=== PATIENT | male | born 1960 | race Caucasian/White ===

== ENCOUNTER 2016-12-18 22:24 | Emergency (ER) | payer OTHER ==
--- NOTE | 2016-12-18 23:01 | ED NURSING NOTES ---
Clinical Report - Nurses [facility] [address] [place] [address] 12/18/2016 22:27 Patient: ZAINA FLORES TRIAGE Triage time 22:34 Dec 18 2016. Chief Complaint: REDNESS and PAIN TO RIGHT EYE. DISCOMFORT, BURNING and DRAINAGE TO RIGHT EYE. 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 Alert. No acute distress. SEPSIS SCREEN: Sepsis Screen. Negative (no infection suspected/documented). --22:43 Sarahy Rojas R.N. 22:34 12/18/16. BP: 131/82. HR: 82. RR: 19. O2 saturation: 100%. Temp: 97.8 F. Pain level now: 05/24. --22:43 Sarahy Rojas R.N. Weight: 120.2 kg stated. Height/Length: 72 inches Per Patient. BMI: 36. --22:41 Sarahy Rojas R.N. Medications None. --22:39 Sarahy Rojas R.N. Allergies None. --22:39 Sarahy Rojas R.N. History Arrived by private vehicle. Historian: patient. This is a new problem and onset was gradual. (6 hours ago). He may have sustained an injury. He has had eye discomfort and eye irritation. He has had eye discharge (teary). 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 PAST MEDICAL HX: Immunizations: up-to-date. SURGERY HX: No history of previous surgery. SOCIAL HX: Never smoker. Alcohol use; consumes beer occasionally. No drug use. No infectious disease exposure. ABUSE ASSESSMENT: No report of abuse. SELF HARM ASSESSMENT: A self harm assessment was performed. The patient answered "no" to the question "Have you recently felt down, depressed, or hopeless?", "Have you noticed less interest or pleasure in doing things?", "Do you have thoughts of harming or killing yourself?", "Are you here because you tried to hurt yourself?", "Have you ever tried to hurt yourself before today?", "Have you recently had thoughts about harming or killing others?" and "Do you have any dangerous items in your possession?". FALL RISK ASSESSMENT: Fall risk assessment completed. No fall risk identified. NUTRITIONAL RISK ASSESSMENT: The nutritional risk assessment revealed no deficiencies. FUNCTIONAL ASSESSMENT: Functional assessment: no impairments noted. LEARNING NEEDS ASSESSMENT: The learning needs assessment revealed no barriers. SKIN INTEGRITY ASSESSMENT: Skin integrity risk assessment completed. No skin integrity risk identified. --22:43 Sarahy Rojas R.N. PROBLEMS: "mild hypertension". --22:40 Sarahy Rojas R.N. ADDITIONAL SURGERIES: no known surgeries. Interventions ID band on patient. To treatment room. --22:43 Sarahy Rojas R.N. PHYSICAL ASSESSMENT Ambulatory to room. Patient gowned. GENERAL / NEURO / PSYCH: Alert. Appears in pain. HEENT: No facial asymmetry noted. Pupils equal, round and reactive to light. Runny nose. RESPIRATORY: Respirations not labored. CVS: Capillary refill less than 2 seconds. SKIN: Skin is warm and dry. Normal skin turgor. --22:44 Sarahy Rojas R.N. NURSING PROGRESS NOTES Head of bed elevated. Reassurance given. Patient identifiers checked. Call light placed in reach. Side rails up x 1. Bed placed in lowest position. Brakes of bed on. Patient ready for evaluation- chart flagged. --22:45 Sarahy Rojas R.N. FB REMOVAL - EYE: Removal of foreign body to the eye performed by ED physician. Preparation: slit lamp, fluorescein and gooden lamp at bedside. Procedure: foreign body was removed from the right eye. Procedure was performed successfully. ( provided proparacaine, 2 drops instilled in right eye prior to procedure, following procedure right eye irrigated with 300 ml NS per ,). --23:15 Sarahy Rojas R.N. DISPOSITION / DISCHARGE Departure time: 2317. No learning barriers present. Discharge instructions provided and reviewed with the patient. Reviewed medication(s) side effects and course information. Prescription(s) given to the patient. Work note given ( wrote for 2 days off of work). Patient verbalized understanding. Written instructions provided in Hebrew. The patient was discharged by the physician. He was discharged home. He left the Emergency Department ambulatory and via private vehicle. Patient driving. 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 --23:17 Sarahy Rojas R.N. 23:15 12/18/16. BP: 124/74. HR: 72. RR: 17. O2 saturation: 99%. Temp: 98 F. Pain level now: 0/10. --23:17 Sarahy Rojas R.N. Locked/Released at 12/19/2016 19:02 by Sarahy Rojas R.N.
--- NOTE | 2016-12-18 23:01 | ED NURSING NOTES ---
Clinical Report - Nurses [facility] [address] [place] [address] 12/18/2016 22:27 Patient: ZAINA FLORES TRIAGE Triage time 22:34 Dec 18 2016. Chief Complaint: REDNESS and PAIN TO RIGHT EYE. DISCOMFORT, BURNING and DRAINAGE TO RIGHT EYE. 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 Alert. No acute distress. SEPSIS SCREEN: Sepsis Screen. Negative (no infection suspected/documented). --22:43 Sarahy Rojas R.N. 22:34 12/18/16. BP: 131/82. HR: 82. RR: 19. O2 saturation: 100%. Temp: 97.8 F. Pain level now: 05/24. --22:43 Sarahy Rojas R.N. Weight: 120.2 kg stated. Height/Length: 72 inches Per Patient. BMI: 36. --22:41 Sarahy Rojas R.N. Medications None. --22:39 Sarahy Rojas R.N. Allergies None. --22:39 Sarahy Rojas R.N. History Arrived by private vehicle. Historian: patient. This is a new problem and onset was gradual. (6 hours ago). He may have sustained an injury. He has had eye discomfort and eye irritation. He has had eye discharge (teary). 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 PAST MEDICAL HX: Immunizations: up-to-date. SURGERY HX: No history of previous surgery. SOCIAL HX: Never smoker. Alcohol use; consumes beer occasionally. No drug use. No infectious disease exposure. ABUSE ASSESSMENT: No report of abuse. SELF HARM ASSESSMENT: A self harm assessment was performed. The patient answered "no" to the question "Have you recently felt down, depressed, or hopeless?", "Have you noticed less interest or pleasure in doing things?", "Do you have thoughts of harming or killing yourself?", "Are you here because you tried to hurt yourself?", "Have you ever tried to hurt yourself before today?", "Have you recently had thoughts about harming or killing others?" and "Do you have any dangerous items in your possession?". FALL RISK ASSESSMENT: Fall risk assessment completed. No fall risk identified. NUTRITIONAL RISK ASSESSMENT: The nutritional risk assessment revealed no deficiencies. FUNCTIONAL ASSESSMENT: Functional assessment: no impairments noted. LEARNING NEEDS ASSESSMENT: The learning needs assessment revealed no barriers. SKIN INTEGRITY ASSESSMENT: Skin integrity risk assessment completed. No skin integrity risk identified. --22:43 Sarahy Rojas R.N. PROBLEMS: "mild hypertension". --22:40 Sarahy Rojas R.N. ADDITIONAL SURGERIES: no known surgeries. Interventions ID band on patient. To treatment room. --22:43 Sarahy Rojas R.N. PHYSICAL ASSESSMENT Ambulatory to room. Patient gowned. GENERAL / NEURO / PSYCH: Alert. Appears in pain. HEENT: No facial asymmetry noted. Pupils equal, round and reactive to light. Runny nose. RESPIRATORY: Respirations not labored. CVS: Capillary refill less than 2 seconds. SKIN: Skin is warm and dry. Normal skin turgor. --22:44 Sarahy Rojas R.N. NURSING PROGRESS NOTES Head of bed elevated. Reassurance given. Patient identifiers checked. Call light placed in reach. Side rails up x 1. Bed placed in lowest position. Brakes of bed on. Patient ready for evaluation- chart flagged. --22:45 Sarahy Rojas R.N. FB REMOVAL - EYE: Removal of foreign body to the eye performed by ED physician. Preparation: slit lamp, fluorescein and gooden lamp at bedside. Procedure: foreign body was removed from the right eye. Procedure was performed successfully. ( provided proparacaine, 2 drops instilled in right eye prior to procedure, following procedure right eye irrigated with 300 ml NS per ,). --23:15 Sarahy Rojas R.N. DISPOSITION / DISCHARGE Departure time: 2317. No learning barriers present. Discharge instructions provided and reviewed with the patient. Reviewed medication(s) side effects and course information. Prescription(s) given to the patient. Work note given ( wrote for 2 days off of work). Patient verbalized understanding. Written instructions provided in Setswana. The patient was discharged by the physician. He was discharged home. He left the Emergency Department ambulatory and via private vehicle. Patient driving. 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 --23:17 Sarahy Rojas R.N. 23:15 12/18/16. BP: 124/74. HR: 72. RR: 17. O2 saturation: 99%. Temp: 98 F. Pain level now: 0/10. --23:17 Sarahy Rojas R.N. Locked/Released at 12/19/2016 19:02 by Sarahy Rojas R.N.
--- NOTE | 2016-12-18 23:01 | ED CLINICAL REPORT ---
Clinical Report - Physicians/Mid Levels [facility] [address] [place] [address] 12/18/2016 22:27 Patient: ZAINA FLORES Time Seen: 22:36. Arrived- By private vehicle. Historian- patient. HISTORY OF PRESENT ILLNESS Chief Complaint: EYE PAIN, REDNESS and FOREIGN BODY. This started about 8 hours ago, involves the right eye, is characterized as moderate in severity and has been constant and is still present. The patient sustained injury. 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 He has metallic foreign material in the right eye that fell from overhead and from grinding (he was wearing safety goggles and feels something may have fallen into his eye from above - but no definite high velocity injury mechanism). Eye pain and irritation. Moderate right eye redness. A moderate amount of watery discharge from the right eye. No eye itching, eyelid swelling, photophobia or decreased vision. Patient denies injury to the head, face or neck. REVIEW OF SYSTEMS No fever, sore throat or cough. PAST HISTORY See nurses notes. No history of diabetes mellitus or glaucoma. Tetanus immunization status is up-to-date. Mild hypertension. Surgeries: No history of previous surgery. Additional Surgeries: no known surgeries. Medications: None. Allergies: None. SOCIAL HISTORY Never smoker. Occasional alcohol use. No drug use. ADDITIONAL NOTES The nursing notes have been reviewed. PHYSICAL EXAM Vital Signs: 12/18/2016 22:34 BP: 131/82. HR: 82. RR: 19. O2 saturation: 100%. Temp: 97.8 F. Pain level now: 10/10. Appearance: Alert. Oriented X3. Patient in moderate distress. HEENT: Nose normal. Head appears normal to external inspection. Eyes: Right eyelid everted for examination. Right cornea examined with fluorescein stain. Eyelids appear normal to inspection. Pupils equal, round and reactive to light. Accommodation normal. EOMs intact. Periorbital areas appear normal to inspection. Right eye examined with slit lamp. Anterior chambers clear. Negative Sidel's sign. Rt Eye: Injected conjunctiva. A single small metallic corneal foreign body is present inferiorly. Lt Eye: Left eye exam normal. Neck: Neck supple. Normal inspection. CVS: Normal heart rate and rhythm. Heart sounds normal. Respiratory: No respiratory distress. Breath sounds normal. Skin: No rash. Extremities: Extremities negative. Neuro: Oriented X 3. Mood/affect normal. No motor deficit. PROGRESS AND PROCEDURES Removal of Eye Foreign Body: After topical anesthesia with 3 drops of Proparacaine, a single foreign body was successfully removed from the right cornea using the slit lamp (with magnification) and magnification lenses, a sterile rotating jaime and irrigation, lid eversion, fluorescein and a Wood's lamp. There were no complications encountered. Aftercare included antibiotic ointment. The patient was cooperative. A single rust ring removed. Course of Care: Proparacaine 2 drops to the right eye given. Clear metallic fb with small rust ring - removed as above. Not c/w high velocity injury / globe penetration. Patient/family counseled. Disposition: Discharged. Condition: stable and improved. CLINICAL IMPRESSION Removed corneal foreign body right eye with rust ring. INSTRUCTIONS Do not work for two days. Drink plenty of fluids. No alcohol until released. Warnings: Further evaluation is necessary. It is very important to follow up with a physician. SEDATIVE MEDICATION: You were given sedative medication during your visit. Do not drive or operate dangerous machinery. CONTROLLED SUBSTANCE WARNINGS. GENERAL WARNINGS: Return or contact your physician immediately if your condition worsens or changes unexpectedly, if not improving as expected, or if other problems arise. Prescription Medications: Hydrocodone/APAP 5mg / 325mg: take 1-2 orally every 6 hours as needed for pain. Dispense ten (10). No refill. Sulfacetamide ophthalmic solution 10% : instill 2 drops into the affected eye every 2 hours while awake for 3 days, until symptoms resolve. Dispense ten (10) mL. No refill. OTC Medications: Acetaminophen (available over the counter): take according to label instructions. Motrin (available over the counter): take according to label instructions. Follow-up with: Krish Anthony MD, Ophthalmology, , [facility], [address] [place] [address]; Brandee Saenz MD, Ophthalmology, [facility], [address] [place] [address] Drive - [address], , [place] [phone] Follow up in two days. (Electronically signed by Mark Chavez DO 12/19/2016 7:35)
--- NOTE | 2016-12-18 23:01 | ED CLINICAL REPORT ---
Clinical Report - Physicians/Mid Levels [facility] [address] [place] [address] 12/18/2016 22:27 Patient: ZAINA FLORES Time Seen: 22:36. Arrived- By private vehicle. Historian- patient. HISTORY OF PRESENT ILLNESS Chief Complaint: EYE PAIN, REDNESS and FOREIGN BODY. This started about 8 hours ago, involves the right eye, is characterized as moderate in severity and has been constant and is still present. The patient sustained injury. 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 He has metallic foreign material in the right eye that fell from overhead and from grinding (he was wearing safety goggles and feels something may have fallen into his eye from above - but no definite high velocity injury mechanism). Eye pain and irritation. Moderate right eye redness. A moderate amount of watery discharge from the right eye. No eye itching, eyelid swelling, photophobia or decreased vision. Patient denies injury to the head, face or neck. REVIEW OF SYSTEMS No fever, sore throat or cough. PAST HISTORY See nurses notes. No history of diabetes mellitus or glaucoma. Tetanus immunization status is up-to-date. Mild hypertension. Surgeries: No history of previous surgery. Additional Surgeries: no known surgeries. Medications: None. Allergies: None. SOCIAL HISTORY Never smoker. Occasional alcohol use. No drug use. ADDITIONAL NOTES The nursing notes have been reviewed. PHYSICAL EXAM Vital Signs: 12/18/2016 22:34 BP: 131/82. HR: 82. RR: 19. O2 saturation: 100%. Temp: 97.8 F. Pain level now: 10/10. Appearance: Alert. Oriented X3. Patient in moderate distress. HEENT: Nose normal. Head appears normal to external inspection. Eyes: Right eyelid everted for examination. Right cornea examined with fluorescein stain. Eyelids appear normal to inspection. Pupils equal, round and reactive to light. Accommodation normal. EOMs intact. Periorbital areas appear normal to inspection. Right eye examined with slit lamp. Anterior chambers clear. Negative Sidel's sign. Rt Eye: Injected conjunctiva. A single small metallic corneal foreign body is present inferiorly. Lt Eye: Left eye exam normal. Neck: Neck supple. Normal inspection. CVS: Normal heart rate and rhythm. Heart sounds normal. Respiratory: No respiratory distress. Breath sounds normal. Skin: No rash. Extremities: Extremities negative. Neuro: Oriented X 3. Mood/affect normal. No motor deficit. PROGRESS AND PROCEDURES Removal of Eye Foreign Body: After topical anesthesia with 3 drops of Proparacaine, a single foreign body was successfully removed from the right cornea using the slit lamp (with magnification) and magnification lenses, a sterile rotating jaime and irrigation, lid eversion, fluorescein and a Wood's lamp. There were no complications encountered. Aftercare included antibiotic ointment. The patient was cooperative. A single rust ring removed. Course of Care: Proparacaine 2 drops to the right eye given. Clear metallic fb with small rust ring - removed as above. Not c/w high velocity injury / globe penetration. Patient/family counseled. Disposition: Discharged. Condition: stable and improved. CLINICAL IMPRESSION Removed corneal foreign body right eye with rust ring. INSTRUCTIONS Do not work for two days. Drink plenty of fluids. No alcohol until released. Warnings: Further evaluation is necessary. It is very important to follow up with a physician. SEDATIVE MEDICATION: You were given sedative medication during your visit. Do not drive or operate dangerous machinery. CONTROLLED SUBSTANCE WARNINGS. GENERAL WARNINGS: Return or contact your physician immediately if your condition worsens or changes unexpectedly, if not improving as expected, or if other problems arise. Prescription Medications: Hydrocodone/APAP 5mg / 325mg: take 1-2 orally every 6 hours as needed for pain. Dispense ten (10). No refill. Sulfacetamide ophthalmic solution 10% : instill 2 drops into the affected eye every 2 hours while awake for 3 days, until symptoms resolve. Dispense ten (10) mL. No refill. OTC Medications: Acetaminophen (available over the counter): take according to label instructions. Motrin (available over the counter): take according to label instructions. Follow-up with: Krish Anthony MD, Ophthalmology, , [facility], [address] [place] [address]; Brandee Saenz MD, Ophthalmology, [facility], [address] [place] [address] Drive - [address], , [place] [phone] Follow up in two days. (Electronically signed by Mark Chavez DO 12/19/2016 7:35)
--- NOTE | 2016-12-19 19:02 | ED MED RECONCILIATION SUMMARY ---
Patient: ZAINA FLORES Medication Reconciliation Report [facility] VisitID: [id number] [address] [place] [address] 56y, M Registration Date/Time: 12/18/2016 Weight: 120.2 kg Height/Length: 72 in. BMI: 36.0 ALLERGIES: None The patient's Home Medications are listed below: NONE. The source(s) of the original Home Medication information: Not obtained. The following Medications were given to the patient in the Emergency Department: None. The following Medications were prescribed to the patient: Acetaminophen (available over the counter): take according to label instructions. -- Mark Chavez DO Motrin (available over the counter): take according to label instructions. -- Mark Chavez DO Hydrocodone/APAP 5mg / 325mg: take 1-2 orally every 6 hours as needed for pain. Dispense ten (10). No refill. -- Mark Chavez DO Sulfacetamide ophthalmic solution 10% : instill 2 drops into the affected eye every 2 hours while awake for 3 days, until symptoms resolve. Dispense ten (10) mL. No refill. -- Mark Chavez DO
--- NOTE | 2016-12-19 19:02 | ED DISCHARGE INSTRUCTIONS ---
Patient: ZAINA FLORES General Instructions [facility] VisitID: [id number] Karen More[place]Stephanie [place] [id number] 56y, M Registration Date/Time: 12/18/2016 Removed corneal foreign body right eye with rust ring. INSTRUCTIONS Do not work for two days. Drink plenty of fluids. No alcohol until released. Warnings: Further evaluation is necessary. It is very important to follow up with a physician. SEDATIVE MEDICATION: You were given sedative medication during your visit. Do not drive or operate dangerous machinery. CONTROLLED SUBSTANCE WARNINGS. GENERAL WARNINGS: Return or contact your physician immediately if your condition worsens or changes unexpectedly, if not improving as expected, or if other problems arise. Prescription Medications: Hydrocodone/APAP 5mg / 325mg: take 1-2 orally every 6 hours as needed for pain. Dispense ten (10). No refill. Sulfacetamide ophthalmic solution 10% : instill 2 drops into the affected eye every 2 hours while awake for 3 days, until symptoms resolve. Dispense ten (10) mL. No refill. OTC Medications: Acetaminophen (available over the counter): take according to label instructions. Motrin (available over the counter): take according to label instructions. Follow-up with: Krish Anthony MD, Ophthalmology, , [facility], [address] [place] [address]; Brandee Saenz MD, Ophthalmology, [facility], [address] [place] [address] - [address] [address] Follow up in two days. ADDITIONAL INFORMATION Particle Removed From Eyewith Rust Ring [Corneal F.B.] The metal particle that got into your eye stuck to the cornea (the clear part in front of your eye). This sensitive area is very painful when injured. However, it heals rapidly and the pain disappears within 24-48 hours. Although the metal particle may have been removed, the salty tears have caused the metal to rust and form a stain in the cornea. Many times it is not possible to completely remove a rust ring on the first visit. Therefore, you may have to return to this facility or be referred to an consumer relations specialist for further treatment. Home Care: A cold pack (ice in a plastic bag, wrapped in a towel) may be applied over the eye for 20 minutes at a time to reduce pain. You may use acetaminophen (Tylenol) or ibuprofen (Motrin, Advil) to control pain, unless another medicine was prescribed. [NOTE: If you have chronic liver or kidney disease or ever had a stomach ulcer or GI bleeding, talk with your doctor before using these medicines.] If an EYE PATCH was applied: You may place the ice pack directly over the eye-patch. If you were given a return appointment for patch removal and re-exam, do not miss it. An eye patch should not be left in place for more than 48 hours, unless advised to do so by your doctor. DO NOT DRIVE a motor vehicle or operate machinery with the patch in place since you will have difficulty in judging distances with only one eye. If eye drops or ointment was prescribed, take as directed. Follow Up: If no patch was used but the pain continues for more than 48 hours, you should have another exam. Return to this facility or contact the referral doctor to arrange this. If your eye was patched and if you were asked to remove the patch yourself, see your doctor or return to this facility if your pain is still present after removal. If you were given a return appointment for patch removal and re-exam, do not miss this. It could be harmful if the patch remains in place longer than advised. Get Prompt Medical Attention if any of the following occur: Increasing eye pain or pain that does not improve after 24 hours Discharge from the eye Redness of the eye or swelling of the eyelids Worsening vision Hydrocodone Bitartrate, Acetaminophen Oral tablet What is this medicine? ACETAMINOPHEN; HYDROCODONE (a set a ARELIS hank fen; venkatesh droe KOE done) is a pain reliever. It is used to treat mild to moderate pain. How should I use this medicine? Take this medicine by mouth. Swallow it with a full glass of water. Follow the directions on the prescription label. If the medicine upsets your stomach, take the medicine with food or milk. Do not take more than you are told to take. Talk to your buffer copper regarding the use of this medicine in children. This medicine is not approved for use in children. What side effects may I notice from receiving this medicine? Side effects that you should report to your doctor or health home care manager rn as soon as possible: allergic reactions like skin rash, itching or hives, swelling of the face, lips, or tongue breathing problems confusion feeling faint or lightheaded, falls stomach pain yellowing of the eyes or skin Side effects that usually do not require medical attention (report to your doctor or health home care manager rn if they continue or are bothersome): nausea, vomiting stomach upset What may interact with this medicine? alcohol antihistamines isoniazid medicines for depression, anxiety, or psychotic disturbances medicines for sleep muscle relaxants naltrexone narcotic medicines (opiates) for pain phenobarbital ritonavir tramadol What if I miss a dose? If you miss a dose, take it as soon as you can. If it is almost time for your next dose, take only that dose. Do not take double or extra doses. Where should I keep my medicine? Keep out of the reach of children. This medicine can be abused. Keep your medicine in a safe place to protect it from theft. Do not share this medicine with anyone. Selling or giving away this medicine is dangerous and against the law. Store at room temperature between 15 and 30 degrees C (59 and 86 degrees F). Protect from light. Keep container tightly closed. Throw away any unused medicine after the expiration date. Discard unused medicine and used packaging carefully. Pets and children can be harmed if they find used or lost packages. What should I tell my health care provider before I take this medicine? They need to know if you have any of these conditions: brain tumor Crohn's disease, inflammatory bowel disease, or ulcerative colitis drink more than 3 alcohol-containing drinks per day drug abuse or addiction head injury heart or circulation problems kidney disease or problems going to the bathroom liver disease lung disease, asthma, or breathing problems an unusual or allergic reaction to acetaminophen, hydrocodone, other opioid analgesics, other medicines, foods, dyes, or preservatives or trying to get breast-feeding What should I watch for while using this medicine? Tell your doctor or health home care manager rn if your pain does not go away, if it gets worse, or if you have new or a different type of pain. You may develop tolerance to the medicine. Tolerance means that you will need a higher dose of the medicine for pain relief. Tolerance is normal and is expected if you take the medicine for a long time. Do not suddenly stop taking your medicine because you may develop a severe reaction. Your body becomes used to the medicine. This does NOT mean you are addicted. Addiction is a behavior related to getting and using a drug for a non-medical reason. If you have pain, you have a medical reason to take pain medicine. Your doctor will tell you how much medicine to take. If your doctor wants you to stop the medicine, the dose will be slowly lowered over time to avoid any side effects. You may get drowsy or dizzy when you first start taking the medicine or change doses. Do not drive, use machinery, or do anything that may be dangerous until you know how the medicine affects you. Stand or sit up slowly. There are different types of narcotic medicines (opiates) for pain. If you take more than one type at the same time, you may have more side effects. Give your health care provider a list of all medicines you use. Your doctor will tell you how much medicine to take. Do not take more medicine than directed. Call emergency for help if you have problems breathing. The medicine will cause constipation. Try to have a bowel movement at least every 2 to 3 days. If you do not have a bowel movement for 3 days, call your doctor or health home care manager rn. Too much acetaminophen can be very dangerous. Do not take Tylenol (acetaminophen) or medicines that contain acetaminophen with this medicine. Many non-prescription medicines contain acetaminophen. Always read the labels carefully. Sulfacetamide Sodium Eye drops, solution What is this medicine? SULFACETAMIDE (sul fa SEE ta mide) is a sulfonamide antibiotic. It is used to treat eye infections. How should I use this medicine? This medicine is only for use in the eye. Do not take by mouth. Follow the directions on the prescription label. Wash hands before and after use. Tilt your head back slightly and pull your lower eyelid down with your index finger to form a pouch. Try not to touch the tip of the dropper to your eye, fingertips, or any other surface. Squeeze the prescribed number of drops into the pouch. Close the eye gently to spread the drops. Your vision may blur for a few minutes. Use your doses at regular intervals. Do not use your medicine more often than directed. Finish the full course prescribed by your doctor or health home care manager rn even if you think your condition is better. Talk to your buffer copper regarding the use of this medicine in children. Special care may be needed. What side effects may I notice from receiving this medicine? Side effects that you should report to your doctor or health home care manager rn as soon as possible: blurred vision that does not go away burning, blistering, peeling, stinging, or itching of the eyes or eyelids, skin or mouth eye redness, swelling, or pain Side effects that usually do not require medical attention (report to your doctor or health home care manager rn if they continue or are bothersome): blurred vision for a few moments after application What may interact with this medicine? eye products that contain silver What if I miss a dose? If you miss a dose, use it as soon as you can. If it is almost time for your next dose, use only that dose. Do not use double or extra doses. Where should I keep my medicine? Keep out of the reach of children. Store between 2 and 30 degrees C (36 and 86 degrees F). Do not freeze. Throw away any unused eye products after the expiration date. What should I tell my health care provider before I take this medicine? They need to know if you have any of these conditions: eye injury or eye surgery an unusual or allergic reaction to sulfacetamide, sulfa drugs, other medicines, foods, dyes, or preservatives or trying to get breast-feeding What should I watch for while using this medicine? Tell your doctor or health home care manager rn if your symptoms do not get better in 2 to 3 days. A full course of treatment is usually 7 to 10 days. If you get any sign of an allergic reaction, stop using your eye product and call your doctor or health home care manager rn. Wear sunglasses if this medicine makes your eyes more sensitive to light. Keep out of the sun, or wear protective clothing outdoors and use a sunscreen. Do not use sun lamps or sun tanning beds or booths. Acetaminophen Oral tablet What is this medicine? ACETAMINOPHEN (a set a ARELIS hank fen) is a pain reliever. It is used to treat mild pain and fever. How should I use this medicine? Take this medicine by mouth with a glass of water. Follow the directions on the package or prescription label. Take your medicine at regular intervals. Do not take your medicine more often than directed. Talk to your buffer copper regarding the use of this medicine in children. While this drug may be prescribed for children as young as 6 years of age for selected conditions, precautions do apply. What side effects may I notice from receiving this medicine? Side effects that you should report to your doctor or health home care manager rn as soon as possible: allergic reactions like skin rash, itching or hives, swelling of the face, lips, or tongue breathing problems fever or sore throat redness, blistering, peeling or loosening of the skin, including inside the mouth trouble passing urine or change in the amount of urine unusual bleeding or bruising unusually weak or tired yellowing of the eyes or skin Side effects that usually do not require medical attention (report to your doctor or health home care manager rn if they continue or are bothersome): headache nausea, stomach upset What may interact with this medicine? alcohol imatinib isoniazid other medicines with acetaminophen What if I miss a dose? If you miss a dose, take it as soon as you can. If it is almost time for your next dose, take only that dose. Do not take double or extra doses. Where should I keep my medicine? Keep out of reach of children. Store at room temperature between 20 and 25 degrees C (68 and 77 degrees F). Protect from moisture and heat. Throw away any unused medicine after the expiration date. What should I tell my health care provider before I take this medicine? They need to know if you have any of these conditions: if you frequently drink alcohol containing drinks liver disease an unusual or allergic reaction to acetaminophen, other medicines, foods, dyes or preservatives or trying to get breast-feeding What should I watch for while using this medicine? Tell your doctor or health home care manager rn if the pain lasts more than 10 days (5 days for children), if it gets worse, or if there is a new or different kind of pain. Also, check with your doctor if a fever lasts for more than 3 days. Do not take other medicines that contain acetaminophen with this medicine. Always read labels carefully. If you have questions, ask your doctor or pharmacist. If you take too much acetaminophen get medical help right away. Too much acetaminophen can be very dangerous and cause liver damage. Even if you do not have symptoms, it is important to get help right away. Ibuprofen Oral tablet What is this medicine? IBUPROFEN (eye BYOO proe fen) is a non-steroidal anti-inflammatory drug (NSAID). It is used for dental pain, fever, headaches or migraines, osteoarthritis, rheumatoid arthritis, or painful monthly periods. It can also relieve minor aches and pains caused by a cold, flu, or sore throat. How should I use this medicine? Take this medicine by mouth with a glass of water. Follow the directions on the prescription label. Take this medicine with food if your stomach gets upset. Try to not lie down for at least 10 minutes after you take the medicine. Take your medicine at regular intervals. Do not take your medicine more often than directed. A special MedGuide will be given to you by the pharmacist with each prescription and refill. Be sure to read this information carefully each time. Talk to your buffer copper regarding the use of this medicine in children. Special care may be needed. What side effects may I notice from receiving this medicine? Side effects that you should report to your doctor or health home care manager rn as soon as possible: allergic reactions like skin rash, itching or hives, swelling of the face, lips, or tongue black or bloody stools, blood in the urine or in vomit breathing problems changes in vision chest pain general ill feeling or flu-like symptoms nausea or vomiting redness, blistering, peeling or loosening of the skin, including inside the mouth slurred speech or weakness on one side of the body stomach pain unexplained weight gain or swelling unusually weak or tired yellowing of eyes or skin Side effects that usually do not require medical attention (report to your doctor or health home care manager rn if they continue or are bothersome): constipation or diarrhea dizziness gas or heartburn stomach upset What may interact with this medicine? Do not take this medicine with any of the following medications: cidofovir ketorolac methotrexate pemetrexed This medicine may also interact with the following medications: alcohol aspirin diuretics lithium other drugs for inflammation like prednisone warfarin What if I miss a dose? If you miss a dose, take it as soon as you can. If it is almost time for your next dose, take only that dose. Do not take double or extra doses. Where should I keep my medicine? Keep out of the reach of children. Store at room temperature between 15 and 30 degrees C (59 and 86 degrees F). Keep container tightly closed. Throw away any unused medicine after the expiration date. What should I tell my health care provider before I take this medicine? They need to know if you have any of these conditions: asthma cigarette smoker drink more than 3 alcohol containing drinks a day heart disease or circulation problems such as heart failure or leg edema (fluid retention) high blood pressure kidney disease liver disease stomach bleeding or ulcers an unusual or allergic reaction to ibuprofen, aspirin, other NSAIDS, other medicines, foods, dyes, or preservatives or trying to get breast-feeding What should I watch for while using this medicine? Tell your doctor or healthcare professional if your symptoms do not start to get better or if they get worse. This medicine does not prevent heart attack or stroke. In fact, this medicine may increase the chance of a heart attack or stroke. The chance may increase with longer use of this medicine and in people who have heart disease. If you take aspirin to prevent heart attack or stroke, talk with your doctor or health home care manager rn. Do not take other medicines that contain aspirin, ibuprofen, or naproxen with this medicine. Side effects such as stomach upset, nausea, or ulcers may be more likely to occur. Many medicines available without a prescription should not be taken with this medicine. This medicine can cause ulcers and bleeding in the stomach and intestines at any time during treatment. Ulcers and bleeding can happen without warning symptoms and can cause . To reduce your risk, do not smoke cigarettes or drink alcohol while you are taking this medicine. You may get drowsy or dizzy. Do not drive, use machinery, or do anything that needs mental alertness until you know how this medicine affects you. Do not stand or sit up quickly, especially if you are an older patient. This reduces the risk of dizzy or fainting spells. This medicine can cause you to bleed more easily. Try to avoid damage to your teeth and gums when you brush or floss your teeth. You have been given the following additional information: Corneal Foreign Body, Removed, W/ Rust Ring Hydrocodone Bitartrate, Acetaminophen Oral tablet Sulfacetamide Sodium Eye drops, solution Acetaminophen Oral tablet Ibuprofen Oral tablet Do not work for two days. (Electronically signed by Mark Chavez DO 12/19/2016 7:35)
--- NOTE | 2016-12-19 19:02 | ED MAR SUMMARY ---
..... Medication Administration Record [facility] [address] [place], [place] [id number] Patient: ZAINA FLORES Visit ID: [id number] 56y, M Weight: 120.2 kg Height/Length: 72 in BMI: 36 ALLERGIES: None
--- NOTE | 2016-12-19 19:02 | ED MED RECONCILIATION SUMMARY ---
Patient: ZAINA FLORES Medication Reconciliation Report [facility] VisitID: [id number] [address] [place] [address] 56y, M Registration Date/Time: 12/18/2016 Weight: 120.2 kg Height/Length: 72 in. BMI: 36.0 ALLERGIES: None The patient's Home Medications are listed below: NONE. The source(s) of the original Home Medication information: Not obtained. The following Medications were given to the patient in the Emergency Department: None. The following Medications were prescribed to the patient: Acetaminophen (available over the counter): take according to label instructions. -- Mark Chavez DO Motrin (available over the counter): take according to label instructions. -- Mark Chavez DO Hydrocodone/APAP 5mg / 325mg: take 1-2 orally every 6 hours as needed for pain. Dispense ten (10). No refill. -- Mark Chavez DO Sulfacetamide ophthalmic solution 10% : instill 2 drops into the affected eye every 2 hours while awake for 3 days, until symptoms resolve. Dispense ten (10) mL. No refill. -- Mark Chavez DO
--- NOTE | 2016-12-19 19:02 | ED DISCHARGE INSTRUCTIONS ---
Patient: ZAINA FLORES General Instructions [facility] VisitID: [id number] [place] [id number] 56y, M Registration Date/Time: 12/18/2016 Removed corneal foreign body right eye with rust ring. INSTRUCTIONS Do not work for two days. Drink plenty of fluids. No alcohol until released. Warnings: Further evaluation is necessary. It is very important to follow up with a physician. SEDATIVE MEDICATION: You were given sedative medication during your visit. Do not drive or operate dangerous machinery. CONTROLLED SUBSTANCE WARNINGS. GENERAL WARNINGS: Return or contact your physician immediately if your condition worsens or changes unexpectedly, if not improving as expected, or if other problems arise. Prescription Medications: Hydrocodone/APAP 5mg / 325mg: take 1-2 orally every 6 hours as needed for pain. Dispense ten (10). No refill. Sulfacetamide ophthalmic solution 10% : instill 2 drops into the affected eye every 2 hours while awake for 3 days, until symptoms resolve. Dispense ten (10) mL. No refill. OTC Medications: Acetaminophen (available over the counter): take according to label instructions. Motrin (available over the counter): take according to label instructions. Follow-up with: Krish Anthony MD, Ophthalmology, , [facility], [address] [place] [address]; Brandee Saenz MD, Ophthalmology, [facility], [address] [place] [address] - [address] [id number] Follow up in two days. ADDITIONAL INFORMATION Particle Removed From Eyewith Rust Ring [Corneal F.B.] The metal particle that got into your eye stuck to the cornea (the clear part in front of your eye). This sensitive area is very painful when injured. However, it heals rapidly and the pain disappears within 24-48 hours. Although the metal particle may have been removed, the salty tears have caused the metal to rust and form a stain in the cornea. Many times it is not possible to completely remove a rust ring on the first visit. Therefore, you may have to return to this facility or be referred to an artificial plastic eye maker for further treatment. Home Care: A cold pack (ice in a plastic bag, wrapped in a towel) may be applied over the eye for 20 minutes at a time to reduce pain. You may use acetaminophen (Tylenol) or ibuprofen (Motrin, Advil) to control pain, unless another medicine was prescribed. [NOTE: If you have chronic liver or kidney disease or ever had a stomach ulcer or GI bleeding, talk with your doctor before using these medicines.] If an EYE PATCH was applied: You may place the ice pack directly over the eye-patch. If you were given a return appointment for patch removal and re-exam, do not miss it. An eye patch should not be left in place for more than 48 hours, unless advised to do so by your doctor. DO NOT DRIVE a motor vehicle or operate machinery with the patch in place since you will have difficulty in judging distances with only one eye. If eye drops or ointment was prescribed, take as directed. Follow Up: If no patch was used but the pain continues for more than 48 hours, you should have another exam. Return to this facility or contact the referral doctor to arrange this. If your eye was patched and if you were asked to remove the patch yourself, see your doctor or return to this facility if your pain is still present after removal. If you were given a return appointment for patch removal and re-exam, do not miss this. It could be harmful if the patch remains in place longer than advised. Get Prompt Medical Attention if any of the following occur: Increasing eye pain or pain that does not improve after 24 hours Discharge from the eye Redness of the eye or swelling of the eyelids Worsening vision Hydrocodone Bitartrate, Acetaminophen Oral tablet What is this medicine? ACETAMINOPHEN; HYDROCODONE (a set a ARELIS hank fen; venkatesh droe KOE done) is a pain reliever. It is used to treat mild to moderate pain. How should I use this medicine? Take this medicine by mouth. Swallow it with a full glass of water. Follow the directions on the prescription label. If the medicine upsets your stomach, take the medicine with food or milk. Do not take more than you are told to take. Talk to your airborne missions systems regarding the use of this medicine in children. This medicine is not approved for use in children. What side effects may I notice from receiving this medicine? Side effects that you should report to your doctor or health career services representative as soon as possible: allergic reactions like skin rash, itching or hives, swelling of the face, lips, or tongue breathing problems confusion feeling faint or lightheaded, falls stomach pain yellowing of the eyes or skin Side effects that usually do not require medical attention (report to your doctor or health career services representative if they continue or are bothersome): nausea, vomiting stomach upset What may interact with this medicine? alcohol antihistamines isoniazid medicines for depression, anxiety, or psychotic disturbances medicines for sleep muscle relaxants naltrexone narcotic medicines (opiates) for pain phenobarbital ritonavir tramadol What if I miss a dose? If you miss a dose, take it as soon as you can. If it is almost time for your next dose, take only that dose. Do not take double or extra doses. Where should I keep my medicine? Keep out of the reach of children. This medicine can be abused. Keep your medicine in a safe place to protect it from theft. Do not share this medicine with anyone. Selling or giving away this medicine is dangerous and against the law. Store at room temperature between 15 and 30 degrees C (59 and 86 degrees F). Protect from light. Keep container tightly closed. Throw away any unused medicine after the expiration date. Discard unused medicine and used packaging carefully. Pets and children can be harmed if they find used or lost packages. What should I tell my health care provider before I take this medicine? They need to know if you have any of these conditions: brain tumor Crohn's disease, inflammatory bowel disease, or ulcerative colitis drink more than 3 alcohol-containing drinks per day drug abuse or addiction head injury heart or circulation problems kidney disease or problems going to the bathroom liver disease lung disease, asthma, or breathing problems an unusual or allergic reaction to acetaminophen, hydrocodone, other opioid analgesics, other medicines, foods, dyes, or preservatives or trying to get breast-feeding What should I watch for while using this medicine? Tell your doctor or health career services representative if your pain does not go away, if it gets worse, or if you have new or a different type of pain. You may develop tolerance to the medicine. Tolerance means that you will need a higher dose of the medicine for pain relief. Tolerance is normal and is expected if you take the medicine for a long time. Do not suddenly stop taking your medicine because you may develop a severe reaction. Your body becomes used to the medicine. This does NOT mean you are addicted. Addiction is a behavior related to getting and using a drug for a non-medical reason. If you have pain, you have a medical reason to take pain medicine. Your doctor will tell you how much medicine to take. If your doctor wants you to stop the medicine, the dose will be slowly lowered over time to avoid any side effects. You may get drowsy or dizzy when you first start taking the medicine or change doses. Do not drive, use machinery, or do anything that may be dangerous until you know how the medicine affects you. Stand or sit up slowly. There are different types of narcotic medicines (opiates) for pain. If you take more than one type at the same time, you may have more side effects. Give your health care provider a list of all medicines you use. Your doctor will tell you how much medicine to take. Do not take more medicine than directed. Call emergency for help if you have problems breathing. The medicine will cause constipation. Try to have a bowel movement at least every 2 to 3 days. If you do not have a bowel movement for 3 days, call your doctor or health career services representative. Too much acetaminophen can be very dangerous. Do not take Tylenol (acetaminophen) or medicines that contain acetaminophen with this medicine. Many non-prescription medicines contain acetaminophen. Always read the labels carefully. Sulfacetamide Sodium Eye drops, solution What is this medicine? SULFACETAMIDE (sul fa SEE ta mide) is a sulfonamide antibiotic. It is used to treat eye infections. How should I use this medicine? This medicine is only for use in the eye. Do not take by mouth. Follow the directions on the prescription label. Wash hands before and after use. Tilt your head back slightly and pull your lower eyelid down with your index finger to form a pouch. Try not to touch the tip of the dropper to your eye, fingertips, or any other surface. Squeeze the prescribed number of drops into the pouch. Close the eye gently to spread the drops. Your vision may blur for a few minutes. Use your doses at regular intervals. Do not use your medicine more often than directed. Finish the full course prescribed by your doctor or health career services representative even if you think your condition is better. Talk to your airborne missions systems regarding the use of this medicine in children. Special care may be needed. What side effects may I notice from receiving this medicine? Side effects that you should report to your doctor or health career services representative as soon as possible: blurred vision that does not go away burning, blistering, peeling, stinging, or itching of the eyes or eyelids, skin or mouth eye redness, swelling, or pain Side effects that usually do not require medical attention (report to your doctor or health career services representative if they continue or are bothersome): blurred vision for a few moments after application What may interact with this medicine? eye products that contain silver What if I miss a dose? If you miss a dose, use it as soon as you can. If it is almost time for your next dose, use only that dose. Do not use double or extra doses. Where should I keep my medicine? Keep out of the reach of children. Store between 2 and 30 degrees C (36 and 86 degrees F). Do not freeze. Throw away any unused eye products after the expiration date. What should I tell my health care provider before I take this medicine? They need to know if you have any of these conditions: eye injury or eye surgery an unusual or allergic reaction to sulfacetamide, sulfa drugs, other medicines, foods, dyes, or preservatives or trying to get breast-feeding What should I watch for while using this medicine? Tell your doctor or health career services representative if your symptoms do not get better in 2 to 3 days. A full course of treatment is usually 7 to 10 days. If you get any sign of an allergic reaction, stop using your eye product and call your doctor or health career services representative. Wear sunglasses if this medicine makes your eyes more sensitive to light. Keep out of the sun, or wear protective clothing outdoors and use a sunscreen. Do not use sun lamps or sun tanning beds or booths. Acetaminophen Oral tablet What is this medicine? ACETAMINOPHEN (a set a ARELIS hank fen) is a pain reliever. It is used to treat mild pain and fever. How should I use this medicine? Take this medicine by mouth with a glass of water. Follow the directions on the package or prescription label. Take your medicine at regular intervals. Do not take your medicine more often than directed. Talk to your airborne missions systems regarding the use of this medicine in children. While this drug may be prescribed for children as young as 6 years of age for selected conditions, precautions do apply. What side effects may I notice from receiving this medicine? Side effects that you should report to your doctor or health career services representative as soon as possible: allergic reactions like skin rash, itching or hives, swelling of the face, lips, or tongue breathing problems fever or sore throat redness, blistering, peeling or loosening of the skin, including inside the mouth trouble passing urine or change in the amount of urine unusual bleeding or bruising unusually weak or tired yellowing of the eyes or skin Side effects that usually do not require medical attention (report to your doctor or health career services representative if they continue or are bothersome): headache nausea, stomach upset What may interact with this medicine? alcohol imatinib isoniazid other medicines with acetaminophen What if I miss a dose? If you miss a dose, take it as soon as you can. If it is almost time for your next dose, take only that dose. Do not take double or extra doses. Where should I keep my medicine? Keep out of reach of children. Store at room temperature between 20 and 25 degrees C (68 and 77 degrees F). Protect from moisture and heat. Throw away any unused medicine after the expiration date. What should I tell my health care provider before I take this medicine? They need to know if you have any of these conditions: if you frequently drink alcohol containing drinks liver disease an unusual or allergic reaction to acetaminophen, other medicines, foods, dyes or preservatives or trying to get breast-feeding What should I watch for while using this medicine? Tell your doctor or health career services representative if the pain lasts more than 10 days (5 days for children), if it gets worse, or if there is a new or different kind of pain. Also, check with your doctor if a fever lasts for more than 3 days. Do not take other medicines that contain acetaminophen with this medicine. Always read labels carefully. If you have questions, ask your doctor or pharmacist. If you take too much acetaminophen get medical help right away. Too much acetaminophen can be very dangerous and cause liver damage. Even if you do not have symptoms, it is important to get help right away. Ibuprofen Oral tablet What is this medicine? IBUPROFEN (eye BYOO proe fen) is a non-steroidal anti-inflammatory drug (NSAID). It is used for dental pain, fever, headaches or migraines, osteoarthritis, rheumatoid arthritis, or painful monthly periods. It can also relieve minor aches and pains caused by a cold, flu, or sore throat. How should I use this medicine? Take this medicine by mouth with a glass of water. Follow the directions on the prescription label. Take this medicine with food if your stomach gets upset. Try to not lie down for at least 10 minutes after you take the medicine. Take your medicine at regular intervals. Do not take your medicine more often than directed. A special MedGuide will be given to you by the pharmacist with each prescription and refill. Be sure to read this information carefully each time. Talk to your airborne missions systems regarding the use of this medicine in children. Special care may be needed. What side effects may I notice from receiving this medicine? Side effects that you should report to your doctor or health career services representative as soon as possible: allergic reactions like skin rash, itching or hives, swelling of the face, lips, or tongue black or bloody stools, blood in the urine or in vomit breathing problems changes in vision chest pain general ill feeling or flu-like symptoms nausea or vomiting redness, blistering, peeling or loosening of the skin, including inside the mouth slurred speech or weakness on one side of the body stomach pain unexplained weight gain or swelling unusually weak or tired yellowing of eyes or skin Side effects that usually do not require medical attention (report to your doctor or health career services representative if they continue or are bothersome): constipation or diarrhea dizziness gas or heartburn stomach upset What may interact with this medicine? Do not take this medicine with any of the following medications: cidofovir ketorolac methotrexate pemetrexed This medicine may also interact with the following medications: alcohol aspirin diuretics lithium other drugs for inflammation like prednisone warfarin What if I miss a dose? If you miss a dose, take it as soon as you can. If it is almost time for your next dose, take only that dose. Do not take double or extra doses. Where should I keep my medicine? Keep out of the reach of children. Store at room temperature between 15 and 30 degrees C (59 and 86 degrees F). Keep container tightly closed. Throw away any unused medicine after the expiration date. What should I tell my health care provider before I take this medicine? They need to know if you have any of these conditions: asthma cigarette smoker drink more than 3 alcohol containing drinks a day heart disease or circulation problems such as heart failure or leg edema (fluid retention) high blood pressure kidney disease liver disease stomach bleeding or ulcers an unusual or allergic reaction to ibuprofen, aspirin, other NSAIDS, other medicines, foods, dyes, or preservatives or trying to get breast-feeding What should I watch for while using this medicine? Tell your doctor or healthcare professional if your symptoms do not start to get better or if they get worse. This medicine does not prevent heart attack or stroke. In fact, this medicine may increase the chance of a heart attack or stroke. The chance may increase with longer use of this medicine and in people who have heart disease. If you take aspirin to prevent heart attack or stroke, talk with your doctor or health career services representative. Do not take other medicines that contain aspirin, ibuprofen, or naproxen with this medicine. Side effects such as stomach upset, nausea, or ulcers may be more likely to occur. Many medicines available without a prescription should not be taken with this medicine. This medicine can cause ulcers and bleeding in the stomach and intestines at any time during treatment. Ulcers and bleeding can happen without warning symptoms and can cause . To reduce your risk, do not smoke cigarettes or drink alcohol while you are taking this medicine. You may get drowsy or dizzy. Do not drive, use machinery, or do anything that needs mental alertness until you know how this medicine affects you. Do not stand or sit up quickly, especially if you are an older patient. This reduces the risk of dizzy or fainting spells. This medicine can cause you to bleed more easily. Try to avoid damage to your teeth and gums when you brush or floss your teeth. You have been given the following additional information: Corneal Foreign Body, Removed, W/ Rust Ring Hydrocodone Bitartrate, Acetaminophen Oral tablet Sulfacetamide Sodium Eye drops, solution Acetaminophen Oral tablet Ibuprofen Oral tablet Do not work for two days. (Electronically signed by Mark Chavez DO 12/19/2016 7:35)
--- NOTE | 2016-12-19 19:02 | ED MAR SUMMARY ---
..... Medication Administration Record [facility] [address] [place], [place] [id number] Patient: ZAINA FLORES Visit ID: [id number] 56y, M Weight: 120.2 kg Height/Length: 72 in BMI: 36 ALLERGIES: None
== END 2016-12-18 23:17 | disposition home or self-care (01) ==
LOC: ED SRH 22:24
DX: T15.01XA Foreign body in cornea, right eye, initial encounter (principal)